=== PATIENT | male | born 1935 | race Caucasian/White ===

== ENCOUNTER 2021-05-23 16:45 | Observation (INO) ==
[2021-05-23 18:29] LABS: Basophils % 0.7 %; Eosinophils # 0.1 K/mcL (0.0-0.6); Eosinophils % 1.4 %; Hematocrit 36.9 % (37.5-50.1); Hemoglobin 12.3 g/dL (12.9-16.9); Immature Granulocytes % 0.3 % (0-4); Lymphocytes # 1.5 K/mcL (0.6-4.6); Lymphocytes % 26.9 %; Mean Corpuscular HGB Conc 33.3 g/dL (31.6-35.5); Mean Corpuscular Hemoglobin 31.2 pg (28.0-33.3); Mean Corpuscular Volume 93.7 fL (83.0-100.0); Mean Platelet Volume 9.8 fL (9.4-12.4); Monocytes # 0.3 K/mcL (0.0-1.3); Monocytes % 5.6 %; Neutrophils # 3.7 K/mcL (1.6-8.9); Platelet Count 208 K/mcL (140-400); Red Blood Count 3.94 M/mcL (4.19-5.50); Red Cell Distribution Width 13.2 % (11.5-14.5); Segmented Neutrophils % 65.1 %; White Blood Count 5.7 K/mcL (4.3-11.1)
[2021-05-23] MEDS ORDERED: Naloxone 0.4 MG/ML INJ IVP PRN (20:12)
[2021-05-23] MEDS ORDERED: Acetaminophen 325 MG TABLET PO PRN (20:12)
[2021-05-23] MEDS ORDERED: Ondansetron 4 MG/2 ML VIAL IVP PRN (20:12)
[2021-05-23 21:24] LABS: Bilirubin,Urine Negative (Negative); Blood,Urine Negative (Negative); Clarity,Urine Clear (Clear); Color,Urine Light-Yellow (Yellow); Glucose,Urine (UA) Normal (Normal); Ketones,Urine Negative (Negative); Leukocyte Esterase,Urine Negative (Negative); Nitrite,Urine Negative (Negative); Protein,Urine Trace mg/dL (Neg-Trace); Specific Gravity,Urine > 1.030 (1.010-1.025)
[2021-05-23] MEDS: 0.9 % Sodium Chloride 1,000 ML IVC SCH (21:58)
[2021-05-24 01:47] LABS: Basophils # 0.1 K/mcL (0.0-0.2); Eosinophils # 0.1 K/mcL (0.0-0.6); Eosinophils % 2.1 %; Hematocrit 34.9 % (37.5-50.1); Hemoglobin 11.7 g/dL (12.9-16.9); Immature Granulocytes % 0.2 % (0-4); Lymphocytes # 1.6 K/mcL (0.6-4.6); Lymphocytes % 25.9 %; Mean Corpuscular HGB Conc 33.5 g/dL (31.6-35.5); Mean Corpuscular Hemoglobin 31.2 pg (28.0-33.3); Mean Corpuscular Volume 93.1 fL (83.0-100.0); Mean Platelet Volume 10.7 fL (9.4-12.4); Monocytes # 0.4 K/mcL (0.0-1.3); Platelet Count 192 K/mcL (140-400); Red Blood Count 3.75 M/mcL (4.19-5.50); Segmented Neutrophils % 63.8 %; White Blood Count 6.3 K/mcL (4.3-11.1)
[2021-05-24 01:55] LABS: INR 1.2; Prothrombin Time 14.1 Seconds (9.4-12.1)
[2021-05-24 02:16] LABS: Alanine Aminotransferase 7 Units/L (7-52); Albumin 3.6 g/dL (3.5-5.7); Albumin/Globulin Ratio 1.6 (1.1-2.2); Alkaline Phosphatase 61 Units/L (34-104); Aspartate Amino Transferase 14 Units/L (13-39); BUN/Creatinine Ratio 24 (6-26); Bilirubin,Total 0.4 mg/dL (0.3-1.0); Blood Urea Nitrogen 21 mg/dL (8-23); Calcium 8.7 mg/dL (8.6-10.3); Carbon Dioxide 27 mEq/L (23-29); Chloride 108 mEq/L (98-107); Globulin 2.3 g/dL (2.4-3.5); Glucose 82 mg/dL (70-105); Osmolality,Calculated 294 (280-300); Potassium 4.1 mEq/L (3.5-5.1); Sodium 141 mEq/L (136-145); Total Protein 5.9 g/dL (6.4-8.9); eGFR For African Americans > 60 (> 60); eGFR For Non-African Americans > 60 (> 60)
[2021-05-24] MEDS: 0.9 % Sodium Chloride 1,000 ML IVC SCH (07:54)
[2021-05-24] MEDS: lisinopriL 5 MG TABLET PO SCH (08:02)
[2021-05-25 00:54] LABS: Basophils # 0.1 K/mcL (0.0-0.2); Basophils % 0.8 %; Eosinophils # 0.1 K/mcL (0.0-0.6); Eosinophils % 1.3 %; Hematocrit 34.4 % (37.5-50.1); Hemoglobin 11.5 g/dL (12.9-16.9); Immature Granulocytes % 0.3 % (0-4); Lymphocytes # 1.4 K/mcL (0.6-4.6); Lymphocytes % 21.9 %; Mean Corpuscular HGB Conc 33.4 g/dL (31.6-35.5); Mean Corpuscular Hemoglobin 31.2 pg (28.0-33.3); Mean Corpuscular Volume 93.2 fL (83.0-100.0); Mean Platelet Volume 10.3 fL (9.4-12.4); Monocytes # 0.4 K/mcL (0.0-1.3); Monocytes % 6.5 %; Neutrophils # 4.4 K/mcL (1.6-8.9); Platelet Count 211 K/mcL (140-400); Red Blood Count 3.69 M/mcL (4.19-5.50); Red Cell Distribution Width 13.1 % (11.5-14.5); Segmented Neutrophils % 69.2 %; White Blood Count 6.3 K/mcL (4.3-11.1)
[2021-05-25 01:14] LABS: BUN/Creatinine Ratio 14 (6-26); Blood Urea Nitrogen 12 mg/dL (8-23); Calcium 8.7 mg/dL (8.6-10.3); Carbon Dioxide 24 mEq/L (23-29); Chloride 106 mEq/L (98-107); Glucose 142 mg/dL (70-105); Magnesium 2.2 mg/dL (1.6-2.6); Osmolality,Calculated 286 (280-300); Sodium 137 mEq/L (136-145); eGFR For African Americans > 60 (> 60); eGFR For Non-African Americans > 60 (> 60)
[2021-05-25 01:27] LABS: Thyroid Stimulating Hormone 2.685 mcIU/mL (0.340-5.600)
[2021-05-25] MEDS ORDERED: Lidocaine -MPF 2% 5 ML VIAL ONE (08:15)
[2021-05-25] MEDS: lisinopriL 5 MG TABLET PO SCH (10:14)
[2021-05-25 11:58] VITALS: BP 119/65; PULSE 104; TEMP 97.6; O2SAT 94
== END 2021-05-25 15:59 | disposition home or self-care (01) ==
LOC: EMEROOARM 16:45 → 3ANU 16:45 → SUATTDRO 20:21 → 3ANU 21:31
PROVIDERS: ADMIT Student in an Organized Health Care Education/Training Program; ATTEND Pharmacist